=== PATIENT | female | born 1965 | race Caucasian/White ===

== ENCOUNTER 2018-03-24 12:53 | Emergency (ER) | payer BC, OTHER ==
[~2018-03-24] VITALS: Ht 165.1 cm; Wt 108.4 kg
[~2018-03-24 12:53] MED LIST: AMOX500C3 PO
[2018-03-24 12:57] VITALS: TEMP 36.8; Ht 165.1 cm; Wt 108.4 kg
[2018-03-24] MEDS ORDERED: SODIUM CHLORIDE 0.9% 1000ML 1,000 ML IV STA (13:29)
--- NOTE | 2018-03-24 13:47 | EMERGENCY ROOM VISIT NOTE ---
ED Visit Note First contact with patient: 13:07 CHIEF COMPLAINT: Flashing lights in both eyes HISTORY OF PRESENTING ILLNESS: This is a 52-year-old female who presents to the emergency department by private vehicle with complaint of flashing lights in both eyes that started last night. The patient states that she was at a fair last night and saw lots of bright lights that seemed to trigger her symptoms. She states that she saw flashing spots in her eyes as well as dark stringy lines in her vision and felt a little off balance. She did feel better when she would lie down and close her eyes and she did not see the flashing spots with her eyes closed. Patient could not provide a specific history for duration of her symptoms, but she states her vision has seemed "off" since last night and has not fully returned to normal, though she states the flashing is not significant at this time. Symptoms seem to be aggravated by bright lights. She was able to sleep well last night and felt that her symptoms had mostly resolved this morning, but the flashing spots came back when she was outside walking her dog this morning. She called her family doctor and they told her she should come to the emergency department to be evaluated. She denies any blurry or double vision, or any loss of vision. She denies headache, but states she has been having some sinus pressure for the past 3 days. She denies any fevers or chills. She denies any nausea or vomiting. She denies any dizziness or vertigo type symptoms, she denies syncope. She does also note that she has had some tingling in the right side of her mouth, her right fingers , and her right leg, but she notes that she has had these types of symptoms intermittently for several years, she does not think that there related to her vision problems. She denies any history of migraines. She wears reading glasses, denies any history of eye problems, states she has not seen an eye doctor in 20 years. She also notes that it has been several years since she saw her family doctor. REVIEW OF SYSTEMS: A complete 10 point review of systems was reviewed with the patient with pertinent positives and negatives as per history of present illness. All else were negative. PAST MEDICAL HISTORY: Reviewed in chart, see problem list below. SOCIAL HISTORY: Lives at home. She denies tobacco use. ALLERGIES: Reviewed in chart, see below. PHYSICAL EXAM: CONSTITUTIONAL: Pleasant and cooperative. No acute distress. Well appearing and well nourished. HEENT: Normocephalic, atraumatic. PERRL, EOMI, normal conjunctivae bilaterally. Funduscopic exam reveals no hemorrhages, papilledema, or other abnormality and optic discs are clear. No evidence for retinal detachment bilaterally. Visual kaye are without deficit in each eye. TMs normal. Pharynx normal. NECK: Supple, full active range of motion without discomfort. RESPIRATORY: Clear to auscultation bilaterally with no wheezing, crackles, rhonchi or stridor. Equal expansion bilaterally. CARDIOVASCULAR: Regular rate and rhythm with no murmurs, rubs or gallops. Normal peripheral perfusion. No edema. GASTROINTESTINAL: Soft, nontender, nondistended. No palpable masses or HSM. Bowel sounds present in all quadrants. MUSCULOSKELETAL: Full range of motion of all joints without discomfort. INTEGUMENTARY: No rash or other significant dermatologic conditions noted. NEUROLOGIC: Alert and oriented X 4 with normal affect. Cranial nerves II-XII grossly intact, no facial droop. No pronator drift. No focal neurologic deficits noted. 5/5 strength in all 4 extremities. Sensation intact to light touch in all 4 extremities. Normal speech. Normal gait observed. Finger-nose- finger testing normal. Negative Romberg. ED COURSE AND MEDICAL DECISION MAKING: CC: Patient presenting with complaint of visual disturbance of bilateral eyes DIFFERENTIAL DIAGNOSIS: Includes, but not limited to retinopathy such as vitreous detachment or retinal detachment, CVA, ICH, angle-closure glaucoma, encephalopathy, hypertensive urgency, optic migraine, among others. INTERPRETATION OF LABS: No leukocytosis, no anemia, normal platelets, no significant electrolyte abnormality, normal renal function, normal liver enzymes. TSH within normal limits. UA negative for infection, appears contaminated. Urine negative. IMAGING: CT HEAD WITHOUT CONTRAST (CT) CLINICAL HISTORY: Headache, right-sided paresthesias, bilateral visual floaters. COMPARISON STUDY: No previous studies for comparison. TECHNIQUE: Axial CT of the brain is performed from the vertex to the skull base. IV contrast was not administered for this examination. A dose lowering technique was utilized adhering to the principles of ALARA. CT DOSE: 788.63 mGycm FINDINGS: No intra or extra-axial mass lesions are visualized. There is no CT evidence of acute cortical infarction. There is no evidence of midline shift. There is no acute hemorrhage. No calvarial fractures are visualized. There are patchy white matter hypodensities likely on a small vessel basis. There is no evidence of pathologic ventricular dilatation. There is no evidence of acute sinusitis IMPRESSION: No acute intracranial findings ----- MRI OF THE BRAIN WITHOUT IV CONTRAST CLINICAL HISTORY: Strokelike symptoms. Visual disturbance. Headache. COMPARISON STUDY: CT of the brain dated 03/24/2018. TECHNIQUE: MRI of the brain was performed utilizing various T1 and T2-weighted sequences in the axial, sagittal, and coronal planes. IV contrast was not administered for this examination. FINDINGS: Brain parenchyma: The brain parenchyma is normal in appearance. There is no hemorrhage or mass effect. There is no restricted diffusion to suggest acute ischemia. Carey-white matter differentiation is preserved. No extra-axial fluid collection is seen. The cerebellar tonsils are normal in configuration. Ventricles, sulci, and cisterns: Normal in configuration. Pituitary and sella: Partially empty sella is incidentally noted. Intracranial vasculature: Normal flow voids are maintained at the skull base. Orbits: The bony orbits are grossly intact. Orbital contents are normal in appearance. Sinuses and mastoids: Clear. Calvarium: Unremarkable. Cervical cord: Partially visualized cervical spinal cord is normal in morphology and signal intensity. IMPRESSION: No acute intracranial abnormality. ----- CAROTID DOPPLER NECK ART HISTORY: Mental status change eval stroke COMPARISON: None. TECHNIQUE: Real-time, grayscale, and color Doppler sonography of the carotid arteries was performed. Imaging reviewed in the transverse and longitudinal planes. All measurements were calculated based on NASCET criteria. FINDINGS: Antegrade flow is seen in the bilateral vertebral arteries. The brachial pressures are hemodynamically similar. Mild plaque formation bilaterally The peak systolic velocity within the right ICA is 106. The right systolic ratio is 1.1. The peak systolic velocity within the left ICA is 90. The left systolic ratio is 0.9. IMPRESSION: No hemodynamically significant stenosis seen within the carotid arteries. Mild plaque formation MEDICATION RECONCILIATION: I attest that I have personally reviewed the patient 's current medication list. INITIAL VITAL SIGNS REVIEW: I reviewed the patient's initial vital signs and interpret them as follows: T: Afebrile; BP: Hypertensive; HR: Mildly tachycardic; RR: Within normal limits; Pulse Ox: Within normal limits on room air. Blood pressure screening: The patient was found to have an elevated blood pressure and was referred to their primary doctor for recheck and further treatment. PUFF TONOMETRY: The puff tonometer was used to evaluate the pressures in the bilateral eyes. After proper patient positioning, the pressures in the bilateral eyes were obtained. The pressures in the LEFT eye were found to be 21, 20, and 22. The pressures in the RIGHT eye were found to be 22, 22, and 22. Patient tolerated the procedure well and no complications were met. VISUAL ACUITY: Right Eye 20/20; Left Eye 20/40 - Without correction. SUMMARY: Patient was evaluated at bedside, history and physical exam performed. Patient is alert and oriented, in no acute distress, resting calmly in stretcher. Neurologic exam is intact with no apparent focal deficits. Patient does complain of right-sided facial, hand, and leg paresthesias, but no apparent sensory or motor deficit on exam. Exam of both eyes reveals no apparent abnormalities. Patient denies presence of flashing spots or floaters currently, but states "my eyes still feel a little bit off." Orders were placed at bedside for labs, UA and urine , IV fluids for hydration as a precaution, CT head to evaluate for intracranial abnormality. Patient was offered Tylenol for her headache, she declined this stating her headache is not bothering her that much. Patient discussed with Dr. Hay, who agrees with my assessment and plan. Labs and imaging reviewed as above. No acute findings. I spoke on the phone with Dr. Avila, neurologist, who recommended performing a brain MRI and carotid ultrasound to rule out stroke today. MRI and carotid ultrasound were reviewed and are also unremarkable. Patient reassessed multiple times throughout ED stay, she has remained stable, reports her visual symptoms continue to come and go, but she is overall comfortable. Patient was updated on all results and plan for discharge, she was encouraged to follow-up with her eye doctor and was also provided with referral for ophthalmology. Patient was also given strict return precautions should her symptoms worsen, she verbalized understanding. Patient was discharged home in stable condition and ambulatory. Problem List Medical Problems: (1) History of hypoglycemia Status: Chronic Current/Historical Medications No Active Prescriptions or Reported Meds Allergies Coded Allergies: Sulfa Antibiotics (Verified Allergy, Unknown, RASH, 03/24/18) Vital Signs Date Time Temp Pulse Resp B/P (MAP) Pulse Ox O2 Delivery O2 Flow Rate FiO2 03/24/18 17:45 88 18 137/77 97 Room Air 03/24/18 15:37 96 18 152/79 97 Room Air 03/24/18 14:28 92 18 138/82 95 Room Air 03/24/18 12:57 36.8 102 18 177/89 98 Room Air Laboratory Results 03/24/18 13:52 Red Blood Count 4.56, Mean Corpuscular Volume 89.7, Mean Corpuscular Hemoglobin 30.9, Mean Corpuscular Hemoglobin Concent 34.5, Mean Platelet Volume 8.7, Neutrophils (%) (Auto) 62.5, Lymphocytes (%) (Auto) 28.9, Monocytes (%) (Auto) 6.9, Eosinophils (%) (Auto) 1.3, Basophils (%) (Auto) 0.3, Neutrophils # (Auto) 4.71, Lymphocytes # (Auto) 2.18, Monocytes # (Auto) 0.52, Eosinophils # (Auto) 0.10, Basophils # (Auto) 0.02 03/24/18 13:52 Test 03/24/18 00:00 03/24/18 13:52 Urine Color YELLOW Urine Appearance CLEAR (CLEAR) Urine pH 7.5 (4.5-7.5) Urine Specific [place] 1.009 (1.000-1.030) Urine Protein NEG (NEG) Urine Glucose (UA) NEG (NEG) Urine Ketones NEG (NEG) Urine Occult Blood 2+ (NEG) Urine Nitrite NEG (NEG) Urine Bilirubin NEG (NEG) Urine Urobilinogen NEG (NEG) Urine Leukocyte Esterase SMALL (NEG) Urine WBC (Auto) 0 /hpf (0-5) Urine RBC (Auto) 0-4 /hpf (0-4) Urine Hyaline Casts (Auto) 0 /lpf (0-5) Urine Epithelial Cells (Auto) >30 /lpf (0-5) Urine Bacteria (Auto) NEG (NEG) Urine Test NEG (NEG) White Blood Count 7.54 K/uL (4.8-10.8) Red Blood Count 4.56 M/uL (4.2-5.4) Hemoglobin 14.1 g/dL (12.0-16.0) Hematocrit 40.9 % (37-47) Mean Corpuscular Volume 89.7 fL (80-100) Mean Corpuscular Hemoglobin 30.9 pg (25-34) Mean Corpuscular Hemoglobin Concent 34.5 g/dl (32-36) Platelet Count 293 K/uL (130-400) Mean Platelet Volume 8.7 fL (7.4-10.4) Neutrophils (%) (Auto) 62.5 % Lymphocytes (%) (Auto) 28.9 % Monocytes (%) (Auto) 6.9 % Eosinophils (%) (Auto) 1.3 % Basophils (%) (Auto) 0.3 % Neutrophils # (Auto) 4.71 K/uL (1.4-6.5) Lymphocytes # (Auto) 2.18 K/uL (1.2-3.4) Monocytes # (Auto) 0.52 K/uL (0.11-0.59) Eosinophils # (Auto) 0.10 K/uL (0-0.5) Basophils # (Auto) 0.02 K/uL (0-0.2) RDW Standard Deviation 40.0 fL (36.4-46.3) RDW Coefficient of Variation 12.3 % (11.5-14.5) Immature Granulocyte % (Auto) 0.1 % Immature Granulocyte # (Auto) 0.01 K/uL (0.00-0.02) Anion Gap 9.0 mmol/L (3-11) Est Creatinine Clear Calc Drug Dose 132.9 ml/min Estimated GFR () 121.9 Estimated GFR (Non- 105.1 BUN/Creatinine Ratio 10.1 (10-20) Calcium Level 9.0 mg/dl (8.5-10.1) Magnesium Level 2.0 mg/dl (1.8-2.4) Total Bilirubin 0.6 mg/dl (0.2-1) Aspartate Amino Transf (AST/SGOT) 34 U/L (15-37) Alanine Aminotransferase (ALT/SGPT) 49 U/L (12-78) Alkaline Phosphatase 56 U/L (45-117) Total Protein 7.3 gm/dl (6.4-8.2) Albumin 3.8 gm/dl (3.4-5.0) Globulin 3.5 gm/dl (2.5-4.0) Albumin/Globulin Ratio 1.1 (0.9-2) Thyroid Stimulating Hormone (TSH) 2.370 uIu/ml (0.300-4.500) Medications Administered Medications (Trade) Dose Ordered Sig/Radha Route Start Time Stop Time Status Last Admin Dose Admin Sodium Chloride 1,000 ml @ 999 mls/hr Q1H1M STAT IV 03/24/18 13:29 03/24/18 14:29 DC 03/24/18 14:45 999 MLS/HR Departure Information Impression Primary Impression: Binocular visual disturbance Dispostion Home / Self-Care Condition GOOD Prescriptions No Active Prescriptions or Reported Meds Referrals Hazel Caba PA (PCP) Matthew Miguel D.O. Patient Instructions ED Blurred Vision, My [facility] Additional Instructions You have been evaluated and treated in the emergency department today for your visual disturbance and headache. Laboratory results and imaging studies have ruled out any emergent causes for your symptoms which would warrant admission or surgery. There is no evidence of a stroke on imaging today. For pain control, you can use the following [id number] medicines (if >12 yo): - Regular strength (325mg/tab) Tylenol (acetaminophen) 2 tabs every 4-6 hours as needed. Do not exceed 10 tablets in a 24 hour period. Avoid taking more than 3000 mg of Tylenol per day. This includes any other sources of acetaminophen you may take on a regular basis. - Regular strength (200 mg/tab) Advil (ibuprofen) 3 tabs every 6-8 hours as needed. Do not exceed a dose of 2400 mg per day. Drink plenty of fluids to stay well hydrated. Please follow-up with your Primary Care Provider in the next few days. You should also be evaluated by your eye doctor. You have been provided with referral information for Dr. Miguel, an hazardous substances scientist, if you are not currently established with an eye doctor. Please call as soon as possible to set up a follow-up appointment to evaluate your vision changes. Return to the emergency department for any worsening symptoms, including severe headache, worsening vision changes such as double vision or loss of vision, nausea or vomiting, fevers/chills, or any other concerns. Work Instructions Return To Work: 1 day
[2018-03-24 14:05] LABS: BASO % 0.3 %; BASO ABS # 0.02 K/uL (0-0.2); EOS % 1.3 %; HEMATOCRIT 40.9 % (37-47); HEMOGLOBIN 14.1 g/dL (12.0-16.0); IG# 0.01 K/uL (0.00-0.02); LYMPH % 28.9 %; LYMPH ABS # 2.18 K/uL (1.2-3.4); MEAN CELL VOLUME 89.7 fL (80-100); MEAN CORPUSCULAR HEMOGLOBIN 30.9 pg (25-34); MEAN CORPUSCULAR HGB CONC 34.5 g/dl (32-36); MEAN PLATELET VOLUME 8.7 fL (7.4-10.4); MONO % 6.9 %; MONO ABS # 0.52 K/uL (0.11-0.59); NEUT % 62.5 %; NEUT ABS # 4.71 K/uL (1.4-6.5); PLATELET COUNT 293 K/uL (130-400); RED CELL DISTRIBUTION WIDTH CV 12.3 % (11.5-14.5); WHITE BLOOD COUNT 7.54 K/uL (4.8-10.8)
[2018-03-24 14:33] LABS: ALBUMIN 3.8 gm/dl (3.4-5.0); CREATININE 0.62 mg/dl (0.60-1.20); POTASSIUM 3.8 mmol/L (3.5-5.1); TOTAL PROTEIN 7.3 gm/dl (6.4-8.2)
--- NOTE | 2018-03-24 14:46 | DIAGNOSTIC IMAGING REPORT ---
CT HEAD WITHOUT CONTRAST (CT) CLINICAL HISTORY: Headache, right-sided paresthesias, bilateral visual floaters. COMPARISON STUDY: No previous studies for comparison. TECHNIQUE: Axial CT of the brain is performed from the vertex to the skull base. IV contrast was not administered for this examination. A dose lowering technique was utilized adhering to the principles of ALARA. CT DOSE: 788.63 mGycm FINDINGS: No intra or extra-axial mass lesions are visualized. There is no CT evidence of acute cortical infarction. There is no evidence of midline shift. There is no acute hemorrhage. No calvarial fractures are visualized. There are patchy white matter hypodensities likely on a small vessel basis. There is no evidence of pathologic ventricular dilatation. There is no evidence of acute sinusitis IMPRESSION: No acute intracranial findings Electronically signed by: Lam Yu M.D. 03/24/2018 2:45 PM Dictated Date/Time: 03/24/2018 2:43 PM
--- NOTE | 2018-03-24 16:26 | DIAGNOSTIC IMAGING REPORT ---
MRI OF THE BRAIN WITHOUT IV CONTRAST CLINICAL HISTORY: Strokelike symptoms. Visual disturbance. Headache. COMPARISON STUDY: CT of the brain dated 03/24/2018. TECHNIQUE: MRI of the brain was performed utilizing various T1 and T2-weighted sequences in the axial, sagittal, and coronal planes. IV contrast was not administered for this examination. FINDINGS: Brain parenchyma: The brain parenchyma is normal in appearance. There is no hemorrhage or mass effect. There is no restricted diffusion to suggest acute ischemia. Carey-white matter differentiation is preserved. No extra-axial fluid collection is seen. The cerebellar tonsils are normal in configuration. Ventricles, sulci, and cisterns: Normal in configuration. Pituitary and sella: Partially empty sella is incidentally noted. Intracranial vasculature: Normal flow voids are maintained at the skull base. Orbits: The bony orbits are grossly intact. Orbital contents are normal in appearance. Sinuses and mastoids: Clear. Calvarium: Unremarkable. Cervical cord: Partially visualized cervical spinal cord is normal in morphology and signal intensity. IMPRESSION: No acute intracranial abnormality. Electronically signed by: Graeme Messina M.D. 03/24/2018 4:25 PM Dictated Date/Time: 03/24/2018 4:22 PM
--- NOTE | 2018-03-24 17:00 | DIAGNOSTIC IMAGING REPORT ---
CAROTID DOPPLER NECK ART HISTORY: Mental status change eval stroke COMPARISON: None. TECHNIQUE: Real-time, grayscale, and color Doppler sonography of the carotid arteries was performed. Imaging reviewed in the transverse and longitudinal planes. All measurements were calculated based on NASCET criteria. FINDINGS: Antegrade flow is seen in the bilateral vertebral arteries. The brachial pressures are hemodynamically similar. Mild plaque formation bilaterally The peak systolic velocity within the right ICA is 106. The right systolic ratio is 1.1. The peak systolic velocity within the left ICA is 90. The left systolic ratio is 0.9. IMPRESSION: No hemodynamically significant stenosis seen within the carotid arteries. Mild plaque formation The above report was generated using voice recognition software. It may contain grammatical, syntax or spelling errors. Electronically signed by: Abdi Law M.D. 03/24/2018 4:59 PM Dictated Date/Time: 03/24/2018 4:58 PM
[2018-03-24 17:45] VITALS: BP 137/77; PULSE 88; O2SAT 97
== END 2018-03-24 17:46 | disposition home or self-care (01) ==
LOC: C.EDB 12:56 → C.EDD 17:46
DX: H53.30 Unspecified disorder of binocular vision (principal); Z88.1 Allergy status to other antibiotic agents